=== PATIENT | male | born 1955 | race Caucasian/White ===

== ENCOUNTER 2017-05-30 19:10 | Emergency (ER) | payer BC ==
[~2017-05-30] VITALS: Ht 175.3 cm; Wt 84.1 kg
[2017-05-30 19:11] VITALS: BP 127/62; TEMP 98
[2017-05-30] MEDS ORDERED: PERCOCET 325 MG1 TA2 PO (19:33)
[2017-05-30] MEDS ORDERED: ROBAXIN 75750 MG/TAB PO (19:33)
[2017-05-30] MEDS ORDERED: ULTRAM 50MG TAB50 MG PO (19:33)
[2017-05-30 20:00] VITALS: PULSE 90
== END 2017-05-30 20:05 | disposition home or self-care (01) ==
LOC: COL.ER 19:10
DX: S70.02XA Contusion of left hip, initial encounter (principal); I10 Essential (primary) hypertension; I25.10 Atherosclerotic heart disease of native coronary artery without angina pectoris; E78.5 Hyperlipidemia, unspecified; F17.210 Nicotine dependence, cigarettes, uncomplicated; V84.5XXA Driver of special agricultural vehicle injured in nontraffic accident, initial encounter
CPT/HCPCS: J1170

== ENCOUNTER 2018-11-04 08:34 | Emergency (ER) | payer BC ==
[~2018-11-04] VITALS: Ht 175.3 cm; Wt 84.1 kg
[~2018-11-04 08:34] MED LIST: PERCOCET 325 MG1 TA2 PO; ROBAXIN 75750 MG/TAB PO; ULTRAM 50MG TAB50 MG PO
[2018-11-04 08:40] VITALS: BP 163/81; TEMP 97.8
[2018-11-04] MEDS ORDERED: GLUCOPHAGE1000 MG (09:13)
[2018-11-04] MEDS ORDERED: ASPIRIN 81M81 MG/TA2 (09:13)
[2018-11-04] MEDS ORDERED: ZOCOR 40MG40 MG (09:14)
[2018-11-04] MEDS ORDERED: PLAVIX 75MG TAB75 MG (09:14)
[2018-11-04] MEDS ORDERED: ZETIA 10MG TAB10 MG (09:15)
[2018-11-04] MEDS ORDERED: PRINIVIL10 MG (09:16)
[2018-11-04] MEDS ORDERED: VICTOZA6 MG/ML (09:16)
[2018-11-04] MEDS ORDERED: PERCOCET 325 MG1 TA2 PO (09:36)
[2018-11-04 10:02] VITALS: PULSE 83
== END 2018-11-04 10:11 | disposition home or self-care (01) ==
LOC: COL.ER 08:34
DX: S52.501A Unspecified fracture of the lower end of right radius, initial encounter for closed fracture (principal); S52.611A Displaced fracture of right ulna styloid process, initial encounter for closed fracture; I25.10 Atherosclerotic heart disease of native coronary artery without angina pectoris; Z79.02 Long term (current) use of antithrombotics/antiplatelets; Z79.82 Long term (current) use of aspirin; W00.0XXA Fall on same level due to ice and snow, initial encounter; Y92.410 Unspecified street and highway as the place of occurrence of the external cause
CPT/HCPCS: Q4050

== ENCOUNTER 2019-11-24 23:03 | Emergency (ER) | payer BC ==
[~2019-11-24] VITALS: Ht 172.7 cm; Wt 84.1 kg
[~2019-11-24 23:03] MED LIST changes: +ASPIRIN 81M81 MG/TA2; +GLUCOPHAGE1000 MG; +PLAVIX 75MG TAB75 MG; +PRINIVIL10 MG; +VICTOZA6 MG/ML; +ZETIA 10MG TAB10 MG; +ZOCOR 40MG40 MG
[2019-11-24] MEDS ORDERED: CRESTOR5 MG PO (23:21)
[2019-11-25] MEDS ORDERED: TESSALON P100 MG/CAP PO (01:01)
[2019-11-25] MEDS ORDERED: TAMIFLU 75MG75 MG PO (02:26)
[2019-11-25 02:31] VITALS: BP 122/65; PULSE 80; TEMP 98.9
== END 2019-11-25 02:32 | disposition home or self-care (01) ==
LOC: COL.ER 23:03
DX: J10.1 Influenza due to other identified influenza virus with other respiratory manifestations (principal); E11.9 Type 2 diabetes mellitus without complications; I10 Essential (primary) hypertension; I25.10 Atherosclerotic heart disease of native coronary artery without angina pectoris; E78.5 Hyperlipidemia, unspecified; F17.210 Nicotine dependence, cigarettes, uncomplicated; Z95.5 Presence of coronary angioplasty implant and graft; Z79.82 Long term (current) use of aspirin; Z79.02 Long term (current) use of antithrombotics/antiplatelets; Z79.84 Long term (current) use of oral hypoglycemic drugs

== ENCOUNTER 2022-05-13 08:47 | Day surgery (SDC) | payer BC, MEDICARE ==
[2022-05-13] VITALS (11 sets, daily range): BP systolic 108–146; BP diastolic 56–69; PULSE 51–65; TEMP 98.2
[~2022-05-13] VITALS: Ht 172.7 cm; Wt 87.5 kg
[~2022-05-13 08:47] MED LIST changes: -ASPIRIN 81M81 MG/TA2; +ASPIRIN E.C. 8181 MG PO; +CRESTOR20 MG PO; -GLUCOPHAGE1000 MG; +GLUCOPHAGE1000 MG PO; -PLAVIX 75MG TAB75 MG; +PLAVIX 75MG TAB75 MG PO; -PRINIVIL10 MG; +PRINIVIL5 MG PO; +TAMIFLU 75MG75 MG PO; +TESSALON P100 MG/CAP PO; -ZETIA 10MG TAB10 MG; +ZETIA 10MG TAB10 MG PO
[2022-05-13 09:43] LABS: HEMATOCRIT 40.3 % (42.0-52.0); HEMOGLOBIN 13.6 g/dl (13.5-18.0); MEAN CELL VOLUME 87 fl (80.0-100.0); MEAN CORPUSCULAR HEMOGLOBIN 29 pg (27-31); MEAN CORPUSCULAR HGB CONC 34 g/dl (33.0-37.0); MEAN PLATELET VOLUME 10.4 fl (7.4-10.4); PLATELET COUNT 221 K/mm3 (130-400); RED BLOOD COUNT 4.64 M/mm3 (4.20-5.60); REDCELL DISTRIBUTION WIDTH-CV 14.1 % (11.5-14.5)
[2022-05-13] MEDS ORDERED: COREG 25MG25 MG/TAB PO (09:43)
[2022-05-13] MEDS ORDERED: ALEVE 220MG220 MG PO (09:44)
[2022-05-13] MEDS ORDERED: NITROSTAT0.4 MG/TAB SL (09:44)
[2022-05-13 09:50] LABS: PROTHROMBIN TIME 11.1 SECONDS (9.7-12.8)
[2022-05-13 09:51] LABS: CALCIUM 9.5 mg/dL (8.4-10.2); CREATININE, serum 0.81 mg/dL (0.72-1.25); POTASSIUM 4.2 mmol/L (3.5-4.5)
[2022-05-13 09:52] LABS: PARTIAL THROMBOPLASTIN TIME 32.4 SECONDS (26.0-37.0)
--- NOTE | 2022-05-13 10:55 | NUR ---
See merge for all medication, assessment, intervention and vital sign times.
--- NOTE | 2022-05-13 11:45 | NUR ---
pt back to [facility] after heart cath, pt is awake and alert, with patient. TR band to rt wrist, cms intact distal. Pt updated on poc, lunch ordered. wctm
[2022-05-13] MEDS ORDERED: IMDUR 30MG30 MG/TAB PO (14:25)
--- NOTE | 2022-05-13 15:15 | NUR ---
Pt is ready for departure after an uneventfull recovery period after heart cath. Pt slept for approx the first hour or so, then was able to eat lunch while sitting on edge of bed with no problem. TR band was deflated with no problem. site was dressed wtih bandaid, folded 2x2 and coban. cms intact distal. pt has been up and is steady on his feet. IV is dc'd with cath intact, dressing applied. Dr. Pickard has been in to see pt and discuss plan of care including rx changes and follow up. I also reviewed dc/fu and rx instructions with pt and , both of whom verbalized understanding. Pt was escorted to exit via wheelchair.
== END 2022-05-13 15:25 | disposition home or self-care (01) ==
LOC: COL.CAR 08:47
PROVIDERS: Internal Medicine Cardiovascular Disease
DX: I25.118 Atherosclerotic heart disease of native coronary artery with other forms of angina pectoris (principal); E66.01 Morbid (severe) obesity due to excess calories; F17.210 Nicotine dependence, cigarettes, uncomplicated; I10 Essential (primary) hypertension; E78.2 Mixed hyperlipidemia
CPT/HCPCS: C1769; J1644; J2250; J3010

== ENCOUNTER 2023-12-09 15:42 | Outpatient (RCR) | payer BC, MEDICARE ==
[~2023-12-09 15:42] MED LIST changes: +ALEVE 220MG220 MG PO; +COREG 25MG25 MG/TAB PO; +IMDUR 30MG30 MG/TAB PO; +IMDUR 60MG60 MG/TAB PO; +NITROSTAT0.4 MG/TAB SL
== END 2023-12-10 | disposition home or self-care (01) ==
LOC: COL.CR
DX: Z48.812 Encounter for surgical aftercare following surgery on the circulatory system (principal); Z95.1 Presence of aortocoronary bypass graft